=== PATIENT | male | born 1990 | race Caucasian/White ===

== ENCOUNTER 2020-10-17 15:09 | Emergency (ER) | payer MEDICAID ==
[~2020-10-17] VITALS: Ht 175.3 cm; Wt 71.8 kg
[2020-10-17 15:25] VITALS: BP 108/73
--- NOTE | 2020-10-17 16:40 | NUR ---
Patient seen and assessed by provider.
== END 2020-10-17 16:39 | disposition home or self-care (01) ==
LOC: ER 15:10
DX: Z02.89 Encounter for other administrative examinations (principal); V87.7XXA Person injured in collision between other specified motor vehicles (traffic), initial encounter; Y93.89 Activity, other specified; Y92.89 Other specified places as the place of occurrence of the external cause; Y99.8 Other external cause status
CPT/HCPCS: 99283

== ENCOUNTER 2021-05-19 10:25 | Emergency (ER) | payer MEDICAID ==
[~2021-05-19] VITALS: Ht 175.3 cm; Wt 71.8 kg
[2021-05-19] MEDS ORDERED: LORA-269 PO (10:31)
[2021-05-19] MEDS ORDERED: GABA100C PO (10:31)
[2021-05-19 10:33] VITALS: BP 131/96
== END 2021-05-19 10:47 | disposition home or self-care (01) ==
LOC: ER 10:25
DX: F10.229 Alcohol dependence with intoxication, unspecified (principal); F25.9 Schizoaffective disorder, unspecified; Z72.89 Other problems related to lifestyle; Z88.1 Allergy status to other antibiotic agents; Z79.899 Other long term (current) drug therapy; Y90.9 Presence of alcohol in blood, level not specified
CPT/HCPCS: 99283

== ENCOUNTER 2021-08-12 12:37 | Emergency (ER) | payer MEDICAID ==
[~2021-08-12] VITALS: Ht 175.3 cm; Wt 71.0 kg
[~2021-08-12 12:37] MED LIST: GABA100C PO; LORA-269 PO
[2021-08-12 13:26] VITALS: BP 107/61
== END 2021-08-12 15:12 | disposition left against medical advice (07) ==
LOC: ER 12:38
DX: F10.129 Alcohol abuse with intoxication, unspecified (principal); Z72.89 Other problems related to lifestyle; Z88.1 Allergy status to other antibiotic agents; Z79.899 Other long term (current) drug therapy; Y90.9 Presence of alcohol in blood, level not specified
CPT/HCPCS: 99283